=== PATIENT | female | born 2000 | race Caucasian/White ===

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

== ENCOUNTER 2019-05-06 12:43 | Emergency (ER) | payer OTHER ==
[2019-05-06] MEDS ORDERED: NORMAL SALINE 1000 ML 1,000 ML IV ONE (13:19)
[2019-05-06] MEDS ORDERED: ONDANSETRON HCL INJ/PF 4 MG/2 ML SDV IV ONE ×2 (13:19→17:00)
--- NOTE | 2019-05-06 13:25 | ER Document Report ---
ED Medical Screen (RME) - General Chief Complaint: Abdominal Pain Stated Complaint: ABDOMINAL PAIN Time Seen by Provider: 05/06/19 13:14 Primary Care Provider: KELLY RICHARDSON MD [Primary Care Provider] - Follow up as needed Mode of Arrival: Ambulatory Information source: Patient Notes: Otherwise healthy 19-year-old female presents emergency department with sudden onset bilateral abdominal pain that began this morning. Patient reports associated nausea, vomiting, diarrhea. Patient denies ever having symptoms like this in the past. She does report some abnormal vaginal discharge as well. I have greeted and performed a rapid initial assessment of this patient. A comprehensive ED assessment and evaluation of the patient, analysis of test results and completion of the medical decision making process will be conducted by additional ED providers. I have specifically instructed the patient or family members with the patient to immediately return to any nursing staff should anything change in the patient's condition or with their chief complaint. TRAVEL OUTSIDE OF THE [place] IN LAST 30 DAYS: No - Related Data Allergies/Adverse Reactions: No Known Allergies Allergy (Verified 05/06/19 13:12) Past Medical History - Social History Chew tobacco use (# tins/day): No Frequency of alcohol use: None Drug Abuse: None Pulmonary Medical History: Reports: Hx Asthma - Immunizations Immunizations up to date: Yes Hx Diphtheria, Pertussis, Tetanus Vaccination: Yes Physical Exam - Vital signs Vitals: Temp Pulse Resp BP Pulse Ox 98.5 F 95 20 121/74 100 05/06/19 12:53 05/06/19 12:53 05/06/19 12:53 05/06/19 12:53 05/06/19 12:53 Course - Vital Signs Vital signs: Temp Pulse Resp BP Pulse Ox 98.5 F 95 20 121/74 100 05/06/19 12:53 05/06/19 12:53 05/06/19 12:53 05/06/19 12:53 05/06/19 12:53 Doctor's Discharge - Discharge Referrals: KELLY RICHARDSON MD [Primary Care Provider] - Follow up as needed
[2019-05-06 13:56] LABS: ABSOLUTE EOSINOPHILS # (AUTO) 0.3 10^3/uL (0.0-0.6); ABSOLUTE LYMPHOCYTES (AUTO) 2.1 10^3/uL (0.5-4.7); ABSOLUTE MONOCYTES (AUTO) 0.9 10^3/uL (0.1-1.4); ABSOLUTE NEUT (AUTO) 9.9 10^3/uL (1.7-8.2); BASOPHILS % (AUTO) 0.1 % (0-2); EOSINOPHILS % (AUTO) 2.3 % (0-6); HEMATOCRIT 38.9 % (36.0-47.0); HEMOGLOBIN 13.4 g/dL (12.0-15.5); LYMPHOCYTES % (AUTO) 15.7 % (13-45); MEAN CORPUSCULAR HEMOGLOBIN 29.4 pg (27.0-33.4); MEAN CORPUSCULAR HGB CONC 34.5 g/dL (32.0-36.0); MEAN CORPUSCULAR VOLUME 85 fl (80-97); MONOCYTES % (AUTO) 6.6 % (3-13); PLATELET COUNT 324 10^3/uL (150-450); RED BLOOD COUNT 4.56 10^6/uL (3.72-5.28); RED CELL DISTRIBUTION WIDTH 12.7 % (11.5-14.0); SEGMENTED NEUTROPHILS % (AUTO) 75.3 % (42-78); TOTAL CELLS COUNTED % (AUTO) 100 %; WHITE BLOOD COUNT 13.2 10^3/uL (4.0-10.5)
[2019-05-06 14:23] LABS: ALBUMIN 4.5 g/dL (3.5-5.0); ALKALINE PHOSPHATASE 62 U/L (38-126); ANION GAP 10 (5-19); ASPARTATE AMINO TRANSFERASE 19 U/L (14-36); BILIRUBIN,DIRECT 0.2 mg/dL (0.0-0.4); BILIRUBIN,TOTAL 0.4 mg/dL (0.2-1.3); BLOOD UREA NITROGEN 9 mg/dL (7-20); CALCIUM 9.4 mg/dL (8.4-10.2); CARBON DIOXIDE 26 mmol/L (22-30); CHLORIDE 105 mmol/L (98-107); GLUCOSE 105 mg/dL (75-110); POTASSIUM 4.2 mmol/L (3.6-5.0); TOTAL PROTEIN 7.6 g/dL (6.3-8.2)
[2019-05-06] MEDS ORDERED: KETOROLAC TROMETHAMINE INJ/PF 30 MG/1 ML SDV IV ONE (15:47)
--- NOTE | 2019-05-06 15:58 | ER Document Report ---
ED GI/ - General Chief Complaint: Abdominal Pain Stated Complaint: ABDOMINAL PAIN Time Seen by Provider: 05/06/19 13:14 Primary Care Provider: KELLY RICHARDSON MD [Primary Care Provider] - Follow up as needed Mode of Arrival: Ambulatory Notes: CHIEF COMPLAINT: Pelvic pain and cramping since yesterday with fever HPI: 19-year-old female presenting to the emergency department complaining of severe pelvic cramping that began yesterday. Patient states she normally has painful menstrual cycles and is due to have her menstrual cycle start in the next week but this pain is more severe and slightly different. She states it is across the entire lower abdomen. She does report a slight vaginal discharge. States she had a fever up to 101.9 last night. She has had nausea with one episode of vomiting. No prior history of similar discomfort. No dysuria ROS: See HPI - all other systems were reviewed and are otherwise negative Constitutional: + fever Eyes: no drainage, no blurred vision ENT: no runny nose, no sore throat Cardiovascular: no chest pain Resp: no SOB, no cough GI: + vomiting, no diarrhea, + abdominal pain : no dysuria, + vaginal discharge Integumentary: no rash Allergy: no hives Musculoskeletal: no extremity pain or swelling Neurological: no numbness/tingling, no weakness MEDICATIONS: I agree with the patient medications as charted by the RN. ALLERGIES: I agree with the allergies as charted by the RN. PAST MEDICAL HISTORY/PAST SURGICAL HISTORY: Reviewed and agree as charted by RN. SOCIAL HISTORY: Reviewed and agree as charted by RN. FAMILY HISTORY: No significant familial comorbid conditions directly related to patient complaint EXAM: Reviewed vital signs as charted by RN. CONSTITUTIONAL: Alert and oriented and responds appropriately to questions. Ill- appearing; well-nourished HEAD: Normocephalic; atraumatic EYES: Conjunctivae clear, sclerae non-icteric ENT: normal nose; no rhinorrhea; moist mucous membranes; pharynx without lesions noted NECK: Supple without meningismus; non-tender; no cervical lymphadenopathy, no masses CARD: RRR; no murmurs, no clicks, no rubs, no gallops; symmetric distal pulses RESP: Normal chest excursion without splinting or tachypnea; breath sounds clear and equal bilaterally; no wheezes, no rhonchi, no rales, ABD/GI: Normal bowel sounds; non-distended; soft, moderate tenderness across the pelvis and suprapubic region on palpation, no unilateral pain, no rebound, no guarding; no palpable organomegaly or masses : Female nurse epic ambulatory analysts present. External genitalia normal. No skin lesions noted. Pelvic Exam: No active bleeding. No purulent discharge. Cervix appears normal. mild CMT. No lesions or masses. Uterus normal size and non tender. Right/Left adnexa normal size and mildly tender but more tender in the right adnexa on bimanual exam. BACK: The back appears normal and is non-tender to palpation, there is no CVA tenderness EXT: Normal ROM in all joints; non-tender to palpation; no cyanosis, no effusions, no edema SKIN: Pale color for age and race; warm; dry; good turgor; no acute lesions noted NEURO: Moves all extremities equally; Motor and sensory function intact PSYCH: The patient's mood and manner are appropriate. Grooming and personal hygiene are appropriate. MDM: 19-year-old female presenting with 2 days of pelvic pain. States she just started spotting vaginally after my initial exam. Has no visible blood on her pelvic exam. Patient is bilaterally tender on exam will order ultrasound to evaluate for cyst, TOA, uterine thickening. She has no unilateral pain in the right lower quadrant suggesting appendicitis at this time. Differential does include PID TRAVEL OUTSIDE OF THE [place] IN LAST 30 DAYS: No - Related Data Allergies/Adverse Reactions: No Known Allergies Allergy (Verified 05/06/19 13:12) Past Medical History - General Information source: Patient - Social History Smoking Status: Never Smoker Chew tobacco use (# tins/day): No Frequency of alcohol use: None Drug Abuse: None Family History: Reviewed & Not Pertinent Patient has suicidal ideation: No Patient has homicidal ideation: No Pulmonary Medical History: Reports: Hx Asthma - Immunizations Immunizations up to date: Yes Hx Diphtheria, Pertussis, Tetanus Vaccination: Yes Physical Exam - Vital signs Vitals: Temp Pulse Resp BP Pulse Ox 98.5 F 95 20 121/74 100 05/06/19 12:53 05/06/19 12:53 05/06/19 12:53 05/06/19 12:53 05/06/19 12:53 Course - Re-evaluation Re-evalutation: 05/06/19 18:46 I spoke with the patient and her mother at length. Patient still with tenderness across the entire pelvis, no unilateral focal pain in the right lower quadrant suggesting appendicitis. Pelvic ultrasound did not show any acute abn ormalities. Patient with a mild leukocytosis. Patient likely has PID. Her GC chlamydial cultures are still pending. Will give Rocephin doxycycline in the emergency department. Patient will be discharged home, mother indicates that they will follow-up closely with [employer]. I gave patient strict return instructions for worsening or continued pain, fever greater than 101 or focal pain in the right lower quadrant and she verbalizes understanding of these instructions - Vital Signs Vital signs: Temp Pulse Resp BP Pulse Ox 98.5 F 95 20 121/74 100 05/06/19 12:53 05/06/19 12:53 05/06/19 12:53 05/06/19 12:53 05/06/19 12:53 - Laboratory Result Diagrams: 05/06/19 13:30 05/06/19 13:30 Laboratory results interpreted by me: 05/06/19 05/06/19 13:30 16:30 WBC 13.2 H Absolute Neuts (auto) 9.9 H Urine Protein 30 H Urine Ketones TRACE H Urine Ascorbic Acid 40 H Discharge - Discharge Clinical Impression: PID (acute pelvic inflammatory disease) Condition: Stable Disposition: HOME, SELF-CARE Additional Instructions: Take the medications as prescribed. No driving if taking narcotics for pain. Take Zofran for nausea. Hydrate well at home. Follow-up closely with [employer] or your primary care provider for reevaluation in 1 to 2 days call for appointment. If you have continued or worsening pain, focal pain in the right lower quadrant, fever greater than 101 return to the emergency department for reevaluation as discussed. Your lab work and imaging studies did not show acute emergent abnormalities. It is likely that you have pelvic inflammatory disease which is a bacterial infection of the uterus and ovaries. Prescriptions: Doxycycline Hyclate 100 mg PO BID #20 capsule Hydrocodone/Acetaminophen [[place] 5-325 Tablet] 1 each PO Q4 PRN 1 Days #14 table t PRN Reason: Ondansetron [Zofran Odt 4 mg Tablet] 1 - 2 tab PO Q4H PRN #15 tab.rapdis PRN Reason: For Nausea/Vomiting Referrals: KELLY RICHARDSON MD [Primary Care Provider] - Follow up as needed
[2019-05-06] MEDS ORDERED: ONDANSETRON HCL INJ/PF 4 MG/2 ML SDV ONE (16:07)
[2019-05-06 16:59] LABS: T.VAGINALIS (WET MOUNT) NO TRICHOMONAS SEEN; WBCS (WET MOUNT) 1+ WBCS SEEN; YEAST (WET MOUNT) NO YEAST SEEN
[2019-05-06 17:02] LABS: RBCS (WET MOUNT) FEW RBCS SEEN
[2019-05-06 17:05] LABS: APPEARANCE,URINE SLIGHTLY-CLOUDY; BILIRUBIN,URINE NEGATIVE (NEGATIVE); COLOR,URINE YELLOW; GLUCOSE, URINE NEGATIVE (NEGATIVE); KETONES,URINE TRACE mg/dL (NEGATIVE); LEUKOCYTE ESTERASE,URINE NEGATIVE (NEGATIVE); NITRITE,URINE NEGATIVE (NEGATIVE); PROTEIN,URINE 30 mg/dL (NEGATIVE); URINE SPECIFIC GRAVITY 1.027; UROBILINOGEN,URINE NEGATIVE mg/dL (<2.0)
--- NOTE | 2019-05-06 18:16 | RADIOLOGY REPORT (SQ) ---
EXAM DESCRIPTION: U/S NON OB PEL TV W/DOPPLER COMPLETED DATE/TIME: 05/06/2019 6:07 pm REASON FOR STUDY: pelvic pain COMPARISON: None. TECHNIQUE: Dynamic and static grayscale images acquired of the pelvis via transvaginal approach and recorded on PACS. Additional selected color Doppler and spectral images recorded. LIMITATIONS: None. FINDINGS: UTERUS: Contour normal. No mass. ENDOMETRIAL STRIPE: No focal or generalized thickening. No masses. CERVIX: No nabothian cysts. RIGHT OVARY AND DOPPLER: Normal size. No worrisome masses. Normal arterial vascular flow without evid ence for torsion. LEFT OVARY AND DOPPLER: Normal size. No worrisome masses. Normal arterial vascular flow without evide nce for torsion. FREE FLUID: None noted. OTHER: No other significant finding. MEASUREMENTS: UTERUS: 3.0 x 5.1 x 7.3 cm. ENDOMETRIAL STRIPE: 9 mm. RIGHT OVARY: 1.4 x 1.8 x 2.2 cm. LEFT OVARY: 1.2 x 1.3 x 2.3 cm. IMPRESSION: NORMAL TRANSVAGINAL PELVIC ULTRASOUND. TECHNICAL DOCUMENTATION: JOB ID: [id number]- All Rights Reserved Rev-09/07 Reading location - IP/workstation name: [email or web address]
[2019-05-06] MEDS ORDERED: DOXYCYCLINE HYCLATE 100 MG TABLET PO ONE (18:48)
[2019-05-06] MEDS ORDERED: HYDROCODONE/ACETAMINOPHEN 5-325 MG TABLET PO ONE (18:48)
[2019-05-06 19:21] VITALS: BP 115/70
[2019-05-06] MEDS ORDERED: CEFTRIAXONE 1 GM/D5W RTU 1 GM/50 ML RTUPB IV ONE (19:30)
== END 2019-05-06 19:07 | disposition home or self-care (01) ==
LOC: ER 12:43
DX: N73.9 Female pelvic inflammatory disease, unspecified (principal); R10.2 Pelvic and perineal pain; R11.2 Nausea with vomiting, unspecified; J45.909 Unspecified asthma, uncomplicated
CPT/HCPCS: 99284; 96361; 96374; 96375; 36415; 87210; 83690; 84703; 85025; 80053; 81001; 76830; 93976; J1885; J2405; J7030